=== PATIENT | male | born 2000 | race Caucasian/White ===

== ENCOUNTER → 2019-07-17 14:24 | Outpatient (CLI) | payer SELFPAY ==
[2013-05-08 18:20] VITALS: BMI 22.4
[2019-07-17 19:18] LABS: Chlamydia Trachomatis by PCR POSITIVE (Negative); Neisserai gonorrhoeae by PCR Negative (Negative); Probe Check PASS
== END ==
PROVIDERS: PCP Family Medicine; Referring Provider Family Medicine; Visit Provider Family Medicine
DX: Z20.2 Contact with and (suspected) exposure to infections with a predominantly sexual mode of transmission (principal)
CPT/HCPCS: 87491; 87591